=== PATIENT | female | born 1980 ===

== ENCOUNTER 2017-09-15 23:06 | Emergency (ER) | payer BC, OTHER ==
[2017-09-15 23:18] VITALS: BP 118/80; PULSE 73; TEMP 97.9; O2SAT 98
--- NOTE | 2017-09-16 00:43 | C.PDOC ---
History Of Present Illness 37 year old female presents to the ER with a complaint of left ankle pain. Patient states that while at home she tripped and misstep twisting her left ankle. Denies laceration, weakness, or numbness. Time Seen by Provider: 09/15/17 23:14 Chief Complaint (Nursing): Lower Extremity Problem/Injury History Per: Patient History/Exam Limitations: no limitations Onset/Duration Of Symptoms: Hrs Current Symptoms Are (Timing): Still Present Recent travel outside of the [place]: No - Ankle/Foot Description Of Injury: Twisted Past Medical History Reviewed: Historical Data, Nursing Documentation, Vital Signs Vital Signs: Last Vital Signs Temp 97.9 F 09/15/17 23:15 Pulse 73 09/15/17 23:15 Resp 20 09/16/17 00:47 BP 118/80 09/15/17 23:15 Pulse Ox 98 09/16/17 06:31 Family History: States: Unknown Family Hx - Social History Hx Alcohol Use: No Hx Substance Use: No Review Of Systems Musculoskeletal: Positive for: Foot Pain Neurological: Negative for: Weakness, Numbness Physical Exam - Physical Exam Appears: Non-toxic Skin: Normal Color, Warm, Dry Head: Atraumatic, Normacephalic Eye(s): bilateral: Normal Inspection Oral Mucosa: Moist Extremity: Capillary Refill (<2 seconds), Other (Moderate swelling and tenderness to the left lateral malleolus) Pulses: Left Dorsalis Pedis: Normal, Right Dorsalis Pedis: Normal Neurological/Psych: Oriented x3, Normal Speech, Normal Motor, Normal Sensation ED Course And Treatment O2 Sat by Pulse Oximetry: 98 (Room air) Pulse Ox Interpretation: Normal - Other Rad Left ankle x-ray X-Ray: Interpreted by Me, Viewed By Me Interpretation: Questionable avulsion fracture of the distal fibula. Medical Decision Making Medical Decision Making: Left foot x-ray ordered, results showed a questionable avulsion fracture of the distal fibula. Motrin administered for pain with relief. Patient placed in splint for support, given crutches with instructions, and she was advised to follow up with PMD. Disposition - Disposition Referrals: Denae Villatoro DPM [Staff Provider] - Disposition: HOME/ ROUTINE Disposition Time: 00:41 Condition: GOOD Additional Instructions: Follow up with the medical doctor/clinic within 1-2 days. Return if worsened. Prescriptions: Acetaminophen [Tylenol] 325 mg PO Q6 PRN #30 tab PRN Reason: Pain, Mild (1-3) Instructions: Ankle Fracture (DC) Forms: [facility] (Telugu), Work Excuse - Clinical Impression Clinical Impression: Ankle fracture - PA / NEUROPHYSIOLOGICAL TECHNICIAN / Resident Statement MD/DO has reviewed & agrees with the documentation as recorded. - Scribe Statement The provider has reviewed the documentation as recorded by the Scribe Brent Gore All medical record entries made by the Jaycobibe were at my direction and personally dictated by me. I have reviewed the chart and agree that the record accurately reflects my personal performance of the history, physical exam, medical decision making, and the department course for this patient. I have also personally directed, reviewed, and agree with the discharge instructions and disposition.
[2017-09-16 00:48] VITALS: RESP 20
--- NOTE | 2017-09-16 09:07 | RAD ---
Date of service: 09/15/2017 PROCEDURE: Left Ankle Radiographs. HISTORY: r/o fx COMPARISON: None FINDINGS: BONES: No acute fracture or destructive bony lesion identified. JOINTS: Normal. No osteoarthritis. Ankle mortise maintained. Talar dome intact SOFT TISSUES: Prominent lateral malleolar and anterior ankle soft tissue edema identified. OTHER FINDINGS: None. IMPRESSION: Soft tissue edema as discussed. No acute fracture or dislocation identified.
== END 2017-09-16 00:47 | disposition home or self-care (01) ==
LOC: C.ER 23:06
DX: S82.892A Other fracture of left lower leg, initial encounter for closed fracture (principal); W01.0XXA Fall on same level from slipping, tripping and stumbling without subsequent striking against object, initial encounter; Y92.009 Unspecified place in unspecified non-institutional (private) residence as the place of occurrence of the external cause

== ENCOUNTER 2017-10-27 12:45 | Day surgery (SDC) | payer OTHER ==
[2017-10-20 09:24] VITALS: BMI 24.3
[2017-10-27] MEDS ORDERED: Bupivacaine 0.25% 20 ML INJ IJ ONE ×2 (14:21→16:07)
[2017-10-27] MEDS ORDERED: ceFAZolin IV 1 gm in Dextrose 2 GM/100 ML BAG IVPB ONE (14:21)
[2017-10-27] MEDS ORDERED: Lidocaine Hydrochloride 0 ML INJ ONE (14:21)
[2017-10-27] MEDS ORDERED: Lidocaine 2% MPF (5 ml) Inj ONE (14:32)
[2017-10-27] MEDS ORDERED: Propofol 10 mg/ml Inj (20 ML) ONE (15:03)
[2017-10-27] MEDS ORDERED: Midazolam 2 MG/2 ML VIAL ONE (15:03)
[2017-10-27] MEDS ORDERED: Lidocaine Hydrochloride 5 ML INJ ONE (16:12)
[2017-10-27] MEDS ORDERED: Oxycodone/Acetaminophen 5/325 mg Tab PO PRN ×2 (16:36)
--- NOTE | 2017-10-27 16:36 | PCM.SURG1 ---
Surgeon's Initial Post Op Note - Surgeon's Notes Surgeon: Dr. Villatoro Research Contracts Supervisor: Dr. Zeng PGY-3, Dr. Sanchez PGY-2 Type of Anesthesia: General LMA Anesthesia Administered By: Law Pre-Operative Diagnosis: left ankle rupture of lateral collateral ligaments , sprain of deltoid ligament Operative Findings: see dictation. 2.4 suture jose miguel. internal brace. 2-0 vicryl. 4-0 vicryl. 4-0 monocryl. PRP Post-Operative Diagnosis: same Operation Performed: left lateral ankle stabilization, PRP injection to deltoid ligament Specimen/Specimens Removed: none Estimated Blood Loss: EBL {In ML}: 5 Blood Products Given: N/A Drains Used: No Drains Post-Op Condition: Good Date of Surgery/Procedure: 10/27/17 Time of Surgery/Procedure: 16:36
[2017-10-27] MEDS ORDERED: HYDROmorphone 0.5 mg/0.5 ml ISec ONE ×2 (16:44→17:03)
[2017-10-27] MEDS: HYDROmorphone 0.5 mg/0.5 ml ISec IVP PRN ×2 (16:45→17:00)
--- NOTE | 2017-10-27 17:11 | PCM.ANESB2 ---
Popliteal Nerve Block - Popliteal Nerve Block Date of Procedure: 10/27/17 Anesthesiologist: Duyen Pre-Procedure Diagnosis: s/p left ankle lateral stabilization Post-Procedure Diagnosis: same Procedure Performed: Popliteal Nerve Block Left - Procedure Popliteal Nerve Block: This procedure was explained to the patient that it is for post-operative pain management. Consent was obtained after a thorough discussion with the patient regarding the benefits and possible complications of local anesthetic block of the sciatic nerve at the popliteal level. The patient lying right lateral decubitus postion and standard monitors are applied. Time-out was held with the circulating nurse to confirm the appropriate block. After applying oxygen by nasal cannula, patient's operative leg was gently raised and supported and the groove in between the biceps femoris and vastus lateralis muscles was carefully palpated. The skin approximately 8cm above the popliteal crease was then marked. The ultrasound transducer was then applied to the posterior thigh approximately 8cm above the popliteal crease in the transverse plane and the sciatic nerve before its division was visualized lateral to the popliteal artery and in between the bicep femoris and semimembranosus/semitendinosus muscles. After identification, the lateral portion of the thigh was prepped with chloraprep and 2mL of Lidocaine 1% was injected subcutaneously for topical anesthesia. At this point, a # 21 gauge Stimuplex insulated 4 inch needle was inserted into pre-marked area and advanced in a perpendicular direction. The needle was inserted above the ultrasound transducer in-plane towards the sciatic nerve in a [id number] direction. Needle advancement was performed carefully under direct ultrasound visualization. Nerve stimulator was used and dorsiflexion of the left foot was elicited at a current of 0.5 MA. After repeated negative aspiration, 2cc of 0.25% Bupivacaine was injected and this was flowed with 28cc of 0.25% Bupivacaine. Under ultrasound guidance the local anesthetics were observed surrounding sciatic nerve. Negative intermittent aspiration. No heme or paresthesia. The needle was removed intact and sterile dressing was applied. The patient tolerated the popliteal nerve block well with stable vital signs.
[2017-10-27] MEDS ORDERED: Lactated Ringer's 1,000 ML IV ONE (17:29)
[2017-10-27 18:16] VITALS: RESP 16; O2SAT 100
[2017-10-27 18:54] VITALS: BP 121/68; PULSE 88; TEMP 97.7
--- NOTE | 2017-10-31 08:17 | OP ---
PROCEDURE DATE: 10/27/2017 PREOPERATIVE DIAGNOSES: 1. Rupture of the left ankle anterior talofibular ligament. 2. Left ankle deltoid ligament sprain. POSTOPERATIVE DIAGNOSES: 1. Rupture of the left ankle anterior talofibular ligament. 2. Left ankle deltoid ligament sprain. PROCEDURES PERFORMED: 1. Left lateral ankle ligament repair with Arthrex internal brace. 2. Left ankle platelet rich plasma, autologous graft injection for deltoid sprain. SURGEON: Denae Villatoro DPM. POLICE RECORDS CLERK: Digna Zeng, PGY-[address] Hopkins, PGY-2. GASFITTER: Dr. Marion. ANESTHESIA: General LMA. INDICATIONS: The patient is a 37-year-old female with the above mentioned diagnosis. The patient has exhausted multiple forms of conservative treatment at this time and now she is here for surgical intervention. The patient signed the consent after careful explanation of risks, benefits and complications and alternatives for surgical procedure. No guarantees were given nor implied. PREPARATION: The patient was brought into the operating room and placed on the operating room table in a supine position. A well padded pneumatic thigh tourniquet was applied to the patient's left thigh. A time-out was performed for identification of the correct patient and procedure. Once general anesthesia was achieved, the patient's left ankle was then prepped and draped in normal sterile manner. The patient's left leg was then exsanguinated and the Pneumatic thigh tourniquet was inflated to 350 mmHg and the procedure began. PROCEDURE #1: Left lateral ankle ligament repair with Arthrex internal brace: Attention was directed to the lateral aspect of the left ankle joint overlying the anterior talofibular ligament was located. The distal fibula and talus were then marked on the skin to serve as anatomical landmark. A 4 cm curvilinear incision was made using a #15 blade overlying the ATFL location at the level of the lateral gutter of the ankle joint. The incision was carried down through the subcutaneous tissue with care being taken to identify and retract all vital neurovascular structures. We therefore cauterized and ligated as necessary. Using a #15 blade, the capsular structures were then incised in vertical fashion overlying the roof of the sinus tarsi. Once the capsular structures were incised, it was noted that the ATFL was completely ruptured at the distal portion where it inserts onto the talus with no fibrous intact. At this time, the ankle joint was then inverted and the articular cartilage and lateral gutter were inspected for any osteochondral lesions and none were appreciated. The ankle joint was then irrigated with copious amounts of normal sterile saline. Next, a 2.7 mm drill bed from the internal brace from Arthrex was utilized to create a drill hole in the talus and then nonarticular surface of the talus was directed approximately 45 degrees to prevent violation of the ankle joint. Next, a 3.5 drill bit was then used to drill across the proximal cortex of the fibula and the drill hole was intact. Next using a 2.4 mm Arthrex SutureTak was drilled all the way into fibula and the FiberTape was placed into drill hole of the fibula with a mallet. FiberTape was then placed on the operative field and ready to perform the modified Brostrom technique. A FiberTape was then set through the remaining capsular structures in an over and over suture fashion. While performing the technique, the foot was placed in a dorsiflexed and everted position. The sutures were tied down, which allowed for reapproximation and tightening of the ATFL and retinaculum. The FiberTape from the internal brace was then sent through the eyelid of the 3.5 mm Arthrex SwiveLock and the ankle was then inserted into the fibular tunnel previously created with the mallets. Access and proper placement and to assure that proper placement was placed into the fibula. Excess FiberTape was then cut and removed from the operative field and the ankle was in eversion and inversion with excellent stability noted. The surgical site was then copiously irrigated with sterile normal saline. Deep subcutaneous sutures using 2-0 and 4-0 Vicryl was then used and 4-0 Monocryl was used to reapproximate the subcuticular layer. Steri-Strips were then applied. Postoperative injection of 10 mL of 1:1 mixture of 1% lidocaine plain and 0.5% Marcaine plain was given on a local block-type fashion to the left ankle. Postoperative dressing included Betadine soaked Adaptic, 4x4, gauze, Arvin, Kerlix, Webril and posterior splint and Toño was applied. PROCEDURE #2: Injection of platelet rich plasma for the deltoid sprain of the left ankle. Approximately, 6 mL of the patient's own blood was harvested from the hep block. A 6 mL of autologous blood was placed on the centrifuge, which was added with an anticoagulant and centrifuged down to approximately 5 mL of platelet rich plasma. The platelet rich plasma solution was then placed in a syringe and the PRP was then implanted in the patient's left ankle at the site of the deltoid sprain. POSTOPERATIVE CONDITION: The patient tolerated the anesthesia and the procedure well and was escorted to the recovery room with vital signs stable and neurovascular status intact to the left lower extremity. The patient will follow up with Dr. Villatoro in her office on an outpatient basis. Digna Zeng DPM Denae Villatoro DPM
== END 2017-10-27 19:00 | disposition home or self-care (01) ==
LOC: C.SDS 12:45
PROVIDERS: ATTEND Podiatrist Foot & Ankle Surgery
DX: S93.422A Sprain of deltoid ligament of left ankle, initial encounter (principal)
CPT/HCPCS: 20605; 27695; C1713; J0690; J1170; J2250; J2704; J3010; J7120